=== PATIENT | male | born 1970 | race Caucasian/White ===

== ENCOUNTER → 2021-07-10 | Day surgery (SDC) | payer OTHER ==
[~2021-07-10] VITALS: Ht 185.4 cm; Wt 103.6 kg
[~2021-07-10] MED LIST: ADVIL LIQUI-GE200 MG PO; CHILDREN'S ASPI81 MG PO; FEOSOL325 MG PO; FLONASE ALLER15.8 ML; HCTZ25 MG PO; IBUPROFEN400 MG PO; LOPRESSOR25 MG PO; LOZOL2.5 MG PO; MELOXICAM15 MG PO; PERCOCET 5-3251 EACH PO; XARELTO10 MG PO
== END | disposition home or self-care (01) ==
LOC: FAS 06:59
DX: Z12.11 Encounter for screening for malignant neoplasm of colon (principal); Z80.0 Family history of malignant neoplasm of digestive organs; K63.5 Polyp of colon; K57.30 Diverticulosis of large intestine without perforation or abscess without bleeding; M17.11 Unilateral primary osteoarthritis, right knee; I10 Essential (primary) hypertension; G89.29 Other chronic pain; M54.50 Low back pain, unspecified; Z87.891 Personal history of nicotine dependence
CPT/HCPCS: J2704; J7120